=== PATIENT | female | born 1975 | race Caucasian/White ===

== ENCOUNTER 2018-01-08 10:31 | Emergency (ER) | payer BC ==
[2018-01-08] MEDS ORDERED: ONDANSETRON 4 MG/2 ML VIAL ONE ×2 (10:49→11:39)
--- NOTE | 2018-01-08 11:25 | RAD REPORT ---
EXAM DESCRIPTION: CT - Head Brain Wo Cont - 01/08/2018 11:02 am CLINICAL HISTORY: HEADACHE COMPARISON: No comparisons TECHNIQUE: All CT scans are performed using dose optimization technique as appropriate and may inclu de automated exposure control or mA/KV adjustment according to patient size. FINDINGS: Acute subarachnoid hemorrhage is seen along the brainstem and foramen magnum.Mild prominen ce of the ventricular system suggests early hydrocephalus.No midline shift. The paranasal sinuses and mastoids are clear. The calvarium is intact. IMPRESSION: Acute subarachnoid hemorrhage is seen predominately surrounding the brainstem. Findings were discussed Dr. Brito in emergency room 11:20 a.m. 01/08/2018 by telephone.
[2018-01-08] MEDS ORDERED: MEPERIDINE HCL 50 MG/ML AMP ONE (11:33)
[2018-01-08] MEDS ORDERED: LORazepam 2 MG/ML VIAL ONE (11:33)
[2018-01-08] MEDS ORDERED: NA CHLORIDE 0.9% 1,000 ML ONE (11:34)
--- NOTE | 2018-01-08 11:37 | ER ---
Nurse's Notes [facility] Name: Radha Matthews Age: 42 yrs Sex: Female : 1975 Arrival Date: 01/08/2018 Time: 10:33 Bed 23 Private MD: Diagnosis: Subarachnoid Hemorrhage Presentation: 01/08 10:33 Presenting complaint: EMS states: headache since 809, was on an elliptical and got a ch headache and nausea, at home took 1000mg tylenol, then called EMS at 1000 because of sever headache. pt given 4 mg zofran in route, temp 98.7 BGL 88. 10:45 Transition of care: patient was not received from another setting of care. Onset of ch symptoms was January 08, 2018 at 08:10. Risk Assessment: Do you want to hurt yourself or someone else? Patient reports no desire to harm self or others. Initial Sepsis Screen: Does the patient meet any 2 criteria? No. Patient's initial sepsis screen is negative. Does the patient have a suspected source of infection? No. Patient's initial sepsis screen is negative. Care prior to arrival: IV initiated. 20 GA, in the right antecubital area, Glucose check: 88 4 zofran. 10:45 Method Of Arrival: EMS: [facility] 10:45 Acuity: ANGELICA 3 ch Triage Assessment: 10:45 Headache History: Denies prior headaches. General: Appears in no apparent distress. ch uncomfortable, Behavior is cooperative, appropriate for age. Pain: Complains of pain in occipital area and base of the skull Pain currently is 10 out of 10 on a pain scale. Pain began suddenly, Also complains of nausea. Neuro: Level of Consciousness is awake, alert, obeys commands, Oriented to person, place, time, situation, Industrial Engineering Professor are equal bilaterally Moves all extremities. Full function Gait is steady, Speech is normal, Facial symmetry appears normal, Facial symmetry: tongue is midline, Pupils are PERRLA, Reports headache occipital area. Respiratory: Airway is patent Respiratory effort is even, unlabored, Breath sounds are clear bilaterally. GI: Pt is actively vomiting Reports nausea, vomiting. Historical: - Allergies: 10:35 No Known Allergies; ch - Home Meds: 10:35 dupixent- shot for exezma [Active]; ch - PMHx: 10:35 ezema; ch - PSHx: 10:49 lap band; - Immunization history:: Adult Immunizations up to date, Flu vaccine is up to date. - Social history:: Smoking status: Patient/guardian denies using tobacco, Patient/guardian denies using alcohol, street drugs. - Ebola Screening: : Patient negative for fever greater than or equal to 101.5 degrees Fahrenheit, and additional compatible Ebola Virus Disease symptoms Patient denies exposure to infectious person Patient denies travel to an Ebola-affected area in the 21 days before illness onset No symptoms or risks identified at this time. Screenin:21 Abuse screen: Denies threats or abuse. Denies injuries from another. Nutritional ch screening: No deficits noted. Tuberculosis screening: No symptoms or risk factors identified. Fall Risk None identified. Assessment: 11:00 Reassessment: Patient appears in no apparent distress at this time. No changes from previously documented assessment. Patient and/or family updated on plan of care and expected duration. Pain level reassessed. Patient is alert, oriented x 3, equal unlabored respirations, skin warm/dry/pink. 11:22 Reassessment: pt made NPO, pt verb understanding of results. 11:54 Reassessment: report called to Vivek Cervantes. pt verb understanding of transfer. pt GCS still 15. General: Appears. Pain: Complains of pain in back of head and occipital area Pain currently is 8 out of 10 on a pain scale. 12:21 Reassessment: Patient appears in no apparent distress at this time. Patient and/or family updated on plan of care and expected duration. Pain level reassessed. Patient is alert, oriented x 3, equal unlabored respirations, skin warm/dry/pink. pt states the pain and nausea is better. GCS 15. no s/s of distress. report givent o Life flight at bedside, repot called to [facility]. family verb understanding of where to go and to be safe driving there. no s/s of distress. Vital Signs: 10:45 BP 147 / 86; Pulse 84; Resp 16; Temp 98.6(O); Pulse Ox 99% on R/A; Weight 90.72 kg; Height 5 ft. 8 in. (172.72 cm); Pain 10/10; 11:54 BP 131 / 86; Pulse 102; Resp 16; Temp 98.2; Pulse Ox 100% on R/A; Pain 2/10; ch 12:21 BP 112 / 68; Pulse 102; Resp 16; Temp 98.3; Pulse Ox 99% on R/A; Pain 5/10; ch 10:45 Body Mass Index 30.41 (90.72 kg, 172.72 cm) ch Nelson Coma Score: 11:08 Eye Response: spontaneous(4). Verbal Response: oriented(5). Motor Response: obeys cp commands(6). Total: 15. NIH Stroke Scale Scores: 11:08 NIHSS Score: 0 cp ED Course: 10:33 Patient arrived in ED. ch 10:40 No provider procedures requiring assistance completed. Inserted saline lock: 20 gauge ch in left forearm, using aseptic technique. Blood collected. 10:40 Maintain EMS IV. Dressing intact. Good blood return noted. Site clean \T\ dry. Gauge \T\ ch site: 20 R AC. Patient transferred, IV remains in place. 10:45 Brandon Fabian PA is PHCP. cp 10:45 Bertram Brito MD is Attending Physician. cp 10:45 Arm band placed on left wrist. Patient placed in an exam room, on a stretcher, on pulse ch oximetry. 10:46 Triage completed. ch 10:50 Patient has correct armband on for positive identification. Placed in gown. Bed in low ch position. Call light in reach. Side rails up X2. monitoring manager on. Pulse ox on. NIBP on. 11:01 CT completed. Patient tolerated procedure well. Patient moved to CT via wheelchair. sj Patient moved back from CT. 11:01 CT Head Brain wo Cont In Process Unspecified. EDMS 11:26 Britney Hidalgo, RN is Primary Nurse. ch 11:45 EKG done, by parking technician. reviewed by Brandon FONTANA. dt2 Administered Medications: 11:21 CANCELLED (Physician Discretion): Reglan 20 mg IVP once; over 15 mins cp 11:21 CANCELLED (Physician Discretion): Benadryl 25 mg IVP once cp 11:30 Drug: NS 0.9% 1000 ml Route: IV; Rate: 1 bolus; Site: right antecubital; ch 11:52 Follow up: IV Status: Infusion continued upon admission; IV Intake: 1000ml ch 11:30 Drug: Demerol - Meperidine 12.5 mg Route: IVP; Site: right antecubital; ch 11:53 Follow up: Response: No adverse reaction; Marked relief of symptoms ch 12:27 Follow up: Response: No adverse reaction; Marked relief of symptoms ch 11:30 Drug: Ativan 1 mg Route: IVP; Site: right antecubital; ch 12:27 Follow up: Response: No adverse reaction; Marked relief of symptoms ch 11:30 Drug: Zofran 4 mg Route: IVP; Site: right antecubital; ch 12:27 Follow up: Response: No adverse reaction; Marked relief of symptoms ch 11:45 Drug: Zofran 4 mg Route: IVP; Site: right antecubital; ch 12:28 Follow up: Response: No adverse reaction; Marked relief of symptoms ch Intake: 11:52 IV: 1000ml; Total: 1000ml. ch Outcome: 10:40 Transferred by helicopter to [facility], Transfer form completed. X-rays sent w/ patient. 10:40 critical 10:40 Instructed on the need for transfer. 11:37 ER care complete, transfer ordered by cp 12:28 Patient left the ED. NIH Stroke Scale - NIH Stroke Score Date: 01/08/2018 Time: 11:08 Total Score = 0 1a. Level of Consciousness (LOC) - 0(Alert) 1b. Level of Consciousness (LOC) (Year \T\ Age) - 0(Both) 1c. LOC Commands (Open \T\ Closes Eyes/Golf Player Assistant) - 0(Both) 2. Best Gaze (Lateral Gaze Paresis) - 0(Normal) 3. Visual Field Loss - 0(No visual loss) 4. Facial Palsy - 0(Normal) 5a. Left Arm: Motor (10-second hold) - 0(No drift) 5b. Right Arm: Motor (10-second hold) - 0(No drift) 6a. Left Leg: Motor (5-second hold - always test supine) - 0(No drift) 6b. Right Leg: Motor (5-second hold - always test supine) - 0(No drift) 7. Limb Ataxia (finger/nose \T\ heel/vergara - test with eyes open) - 0(Absent) 8. Sensory Loss (pinprick arms/legs/face) - 0(Normal) 9. Best Language: Aphasia (description/naming/reading) - 0(No aphasia) 10. Dysarthria (speech clarity - read or repeat words) - 0(Normal) 11. Extinction and Inattention (visual/tactile/auditory/spatial/personal) - 0(No abnormality) Initials: cp Signatures: Dispatcher [employer] Britney Sargent, RHETT RN fransico Akbar, Brandon Patricia PA PA cp Teague, Danielle dt2
--- NOTE | 2018-01-08 11:37 | EDPHYS ---
Physician Documentation [facility] Name: Radha Matthews Age: 42 yrs Sex: Female : 1975 Arrival Date: 01/08/2018 Time: 10:33 Bed 23 Private MD: ED Physician Bertram Brito HPI: 01/08 11:00 This 42 yrs old Female presents to ER via EMS with complaints of Headache. cp 11:00 The patient complains of pain to the back of head. The patient describes the headache cp as aching, pounding, a pressure. Onset: The symptoms/episode began/occurred suddenly, at 08:10. Associated signs and symptoms: Pertinent positives: nausea, Photophobia. Severity of symptoms: in the emergency department the pain a " 10" out of "10". Headache History: Other reports headache started suddenly after exercising on elliptical machine. The patient has not experienced similar symptoms in the past. Historical: - Allergies: 10:35 No Known Allergies; ch - Home Meds: 10:35 dupixent- shot for exezma [Active]; ch - PMHx: 10:35 ezema; ch - PSHx: 10:49 lap band; ch - Immunization history:: Adult Immunizations up to date, Flu vaccine is up to date. - Social history:: Smoking status: Patient/guardian denies using tobacco, Patient/guardian denies using alcohol, street drugs. - Ebola Screening: : Patient negative for fever greater than or equal to 101.5 degrees Fahrenheit, and additional compatible Ebola Virus Disease symptoms Patient denies exposure to infectious person Patient denies travel to an Ebola-affected area in the 21 days before illness onset No symptoms or risks identified at this time. ROS: 11:05 Constitutional: Negative for body aches, chills, fever, poor PO intake. cp 11:05 ENT: Negative for injury, pain, and discharge. cp 11:05 Eyes: Positive for photophobia, Negative for discharge, redness, vision loss. 11:05 Neck: Negative for pain with movement, pain at rest, stiffness, swollen nodes, tenderness. 11:05 Cardiovascular: Negative for chest pain, edema, palpitations. 11:05 Respiratory: Negative for cough, shortness of breath, wheezing. 11:05 Abdomen/GI: Positive for nausea, Negative for abdominal pain, vomiting, diarrhea, constipation, black/tarry stool, rectal bleeding. 11:05 : Negative for urinary symptoms. 11:05 Skin: Negative for cellulitis, rash. 11:05 Neuro: Positive for headache, Negative for altered mental status, dizziness, gait disturbance, numbness, seizure activity, syncope, near syncope, weakness. 11:05 All other systems are negative. Exam: 11:08 Constitutional: The patient appears in no acute distress, alert, awake, cp non-diaphoretic, non-toxic, well developed, well nourished, uncomfortable. 11:08 Head/Face: Normocephalic, atraumatic. Eyes: Pupils equal round and reactive to light, cp extra-ocular motions intact. Lids and lashes normal. Conjunctiva and sclera are non-icteric and not injected. Cornea within normal limits. Periorbital areas with no swelling, redness, or edema. ENT: Nares patent. No nasal discharge, no septal abnormalities noted. Tympanic membranes are normal and external auditory canals are clear. Oropharynx with no redness, swelling, or masses, exudates, or evidence of obstruction, uvula midline. Mucous membranes moist. Neck: Trachea midline, no thyromegaly or masses palpated, and no cervical lymphadenopathy. Supple, full range of motion without nuchal rigidity, or vertebral point tenderness. No Meningismus. Chest/axilla: Normal chest wall appearance and motion. Nontender with no deformity. No lesions are appreciated. 11:08 Cardiovascular: Rate: normal, Rhythm: regular, Pulses: Pulses are 2+ in right radial artery and left radial artery. Heart sounds: murmur, not appreciated, Edema: is not appreciated, JVD: is not appreciated. 11:08 Respiratory: the patient does not display signs of respiratory distress, Respirations: normal, no use of accessory muscles, no retractions, labored breathing, is not present, Breath sounds: are clear throughout, no decreased breath sounds, no stridor, no wheezing. 11:08 Abdomen/GI: Inspection: abdomen appears normal, Bowel sounds: active, all quadrants, Palpation: abdomen is soft and non-tender, in all quadrants, rebound tenderness, is not appreciated, voluntary guarding, is not appreciated, involuntary guarding, is not appreciated. 11:08 Back: pain, is absent, ROM is normal. 11:08 Skin: cellulitis, is not appreciated, no rash present. 11:08 Neuro: Orientation: to person, place \\T\\ time. Mentation: is normal, Cerebellar function: Romberg testing is negative, normal finger to nose testing, Motor: moves all fours, strength is normal, Sensation: no obvious gross deficits. 11:40 ECG was reviewed by the Attending Physician. cp Vital Signs: 10:45 BP 147 / 86; Pulse 84; Resp 16; Temp 98.6(O); Pulse Ox 99% on R/A; Weight 90.72 kg; ch Height 5 ft. 8 in. (172.72 cm); Pain 10/10; 11:54 BP 131 / 86; Pulse 102; Resp 16; Temp 98.2; Pulse Ox 100% on R/A; Pain 2/10; ch 12:21 BP 112 / 68; Pulse 102; Resp 16; Temp 98.3; Pulse Ox 99% on R/A; Pain 5/10; ch 10:45 Body Mass Index 30.41 (90.72 kg, 172.72 cm) NIH Stroke Scale Scores: 11:08 NIHSS Score: 0 cp Sultana Coma Score: 11:08 Eye Response: spontaneous(4). Verbal Response: oriented(5). Motor Response: obeys cp commands(6). Total: 15. MDM: 10:45 Patient medically screened. cp 11:30 Data reviewed: vital signs, nurses notes, radiologic studies, CT scan. Physician cp consultation: DR Gibson, neurology \\T\\[facility], will accept patient to neuro ICU. 01/08 11:13 Order name: CBC with Diff cp 01/08 11:13 Order name: BMP cp 01/08 11:13 Order name: PT-INR cp 01/08 11:13 Order name: Ptt, Activated cp 01/08 11:13 Order name: Magnesium cp 01/08 12:01 Order name: CBC Smear Scan EDMS 01/08 10:46 Order name: CT Head Brain wo Cont; Complete Time: 11:29 cp 01/08 10:46 Order name: Urine Dipstick-Ancillary (obtain specimen) cp 01/08 10:46 Order name: Urine Test (obtain specimen) cp EC:40 Rate is 80 beats/min. Rhythm is regular. IL interval is normal. QRS interval is normal. cp QT interval is normal. Interpreted by me. Reviewed by me. Administered Medications: 11:21 CANCELLED (Physician Discretion): Reglan 20 mg IVP once; over 15 mins cp 11:21 CANCELLED (Physician Discretion): Benadryl 25 mg IVP once cp 11:30 Drug: NS 0.9% 1000 ml Route: IV; Rate: 1 bolus; Site: right antecubital; ch 11:52 Follow up: IV Status: Infusion continued upon admission; IV Intake: 1000ml ch 11:30 Drug: Demerol - Meperidine 12.5 mg Route: IVP; Site: right antecubital; ch 11:53 Follow up: Response: No adverse reaction; Marked relief of symptoms ch 12:27 Follow up: Response: No adverse reaction; Marked relief of symptoms ch 11:30 Drug: Ativan 1 mg Route: IVP; Site: right antecubital; ch 12:27 Follow up: Response: No adverse reaction; Marked relief of symptoms ch 11:30 Drug: Zofran 4 mg Route: IVP; Site: right antecubital; ch 12:27 Follow up: Response: No adverse reaction; Marked relief of symptoms ch 11:45 Drug: Zofran 4 mg Route: IVP; Site: right antecubital; ch 12:28 Follow up: Response: No adverse reaction; Marked relief of symptoms ch Disposition: 13:57 Co-signature as Attending Physician, Bertram Brito MD I agree with the assessment and kdr plan of care. Disposition: 01/08/18 11:37 Transfer ordered to [facility]. Diagnosis is Subarachnoid Hemorrhage. - Reason for transfer: Higher level of care. - Accepting physician is Arthur. - Condition is Stable. - Problem is new. - Symptoms have improved. NIH Stroke Scale - NIH Stroke Score Date: 01/08/2018 Time: 11:08 Total Score = 0 1a. Level of Consciousness (LOC) - 0(Alert) 1b. Level of Consciousness (LOC) (Year \\T\\ Age) - 0(Both) 1c. LOC Commands (Open \\T\\ Closes Eyes/Manager Oracle Database) - 0(Both) 2. Best Gaze (Lateral Gaze Paresis) - 0(Normal) 3. Visual Field Loss - 0(No visual loss) 4. Facial Palsy - 0(Normal) 5a. Left Arm: Motor (10-second hold) - 0(No drift) 5b. Right Arm: Motor (10-second hold) - 0(No drift) 6a. Left Leg: Motor (5-second hold - always test supine) - 0(No drift) 6b. Right Leg: Motor (5-second hold - always test supine) - 0(No drift) 7. Limb Ataxia (finger/nose \\T\\ heel/vergara - test with eyes open) - 0(Absent) 8. Sensory Loss (pinprick arms/legs/face) - 0(Normal) 9. Best Language: Aphasia (description/naming/reading) - 0(No aphasia) 10. Dysarthria (speech clarity - read or repeat words) - 0(Normal) 11. Extinction and Inattention (visual/tactile/auditory/spatial/personal) - 0(No abnormality) Initials: cp Signatures: Dispatcher [employer] Britney Sargent, RHETT RN ch Bertram Brito MD MD kdr Brandon Fabian PA PA cp Corrections: (The following items were deleted from the chart) 11:21 11:13 Reglan 20 mg IVP once; over 15 mins ordered. cp cp 11:21 11:13 Benadryl 25 mg IVP once ordered. cp cp 12:28 11:37 01/08/2018 11:37 Transfer ordered to [facility]. Diagnosis is Subarachnoid Hemorrhage. Reason for transfer: Higher level of care. Accepting physician is Arthur. Condition is Stable. Problem is new. Symptoms have improved. cp
[2018-01-08 11:59] LABS: Absolute Lymphocytes (CBC) 0.7 K/uL (0.7-4.9); Absolute Monocytes 0.2 K/uL (0.1-1.3); Basophils % 0.4 % (0-1.3); Eosinophils % 0.1 % (0-4.4); Hematocrit 42.8 % (36.0-45.0); Lymphocytes % 10.6 % (15.3-44.8); MCH 27.4 pg (27.0-35.0); MCV 82.9 fL (80-100); MPV 9.4 fL (7.6-11.3); Monocytes % 3.5 % (3.3-12.3); RBC Red Blood Cell Count 5.17 M/uL (3.86-4.86)
[2018-01-08 12:39] VITALS: O2SAT 99
[2018-01-08 12:39] LABS: BUN Blood Urea Nitrogen 14 mg/dL (7-18); Bicarbonate 21 mmol/L (21-32); Glucose Level 113 mg/dL (74-106); Magnesium 2.1 mg/dL (1.8-2.4); Potassium 3.8 mmol/L (3.5-5.1); Sodium Level 140 mmol/L (136-145)
[2018-01-08 12:45] VITALS: BP 112/68; TEMP 98.3
[2018-01-08 13:26] LABS: Blood Morphology Comment NOT SEEN (NOT SEEN); Platelet Estimate ADEQ; Urine White Blood Cell Casts OK
--- NOTE | 2018-01-09 07:37 | EKG ---
Test Date: 2018-01-08 Test Time: 11:39:10 Customer Service Representative Teller: CHERRIE MEASUREMENT RESULTS: Intervals: Rate: 80 AL: 132 QRSD: 80 QT: 400 QTc: 461 Driver: P: 38 AL: 132 QRS: -8 T: 2 INTERPRETIVE STATEMENTS: Normal sinus rhythm Inferior infarct, age undetermined Cannot rule out Anterior infarct, age undetermined Abnormal ECG Compared to ECG 04/04/2014 10:19:06 No significant changes Electronically Signed On 01-09-18 07:34:29 CDT by Tanner Flores
== END 2018-01-08 12:28 | disposition short-term general hospital (02) ==
LOC: ER 10:31
DX: I60.9 Nontraumatic subarachnoid hemorrhage, unspecified (principal)
CPT/HCPCS: 36415; 70450; 80048; 83735; 85025; 85610; 85730; 93005; 96374; 96375; 99285; J2175; J2405; J7030